=== PATIENT | male | born 1985 | race Two or more races ===

== ENCOUNTER 2024-06-08 14:20 | Emergency (ER) | payer OTHER ==
[~2024-06-08] VITALS: Ht 180.3 cm; Wt 68.0 kg
[2024-06-08 16:20] LABS: HEMATOCRIT 44.4 % (39.0-48.0); HEMOGLOBIN 15.3 g/dL (13-16.00); MEAN CELL VOLUME 90.6 fL (80.0-100.00); MEAN CORPUSCULAR HEMOGLOBIN 31.2 pg (27.00-32.0); MEAN CORPUSCULAR HGB CONC 34.5 g/dl (32.0-36.0); PLATELET COUNT 164 K/uL (150-450)
== END 2024-06-08 18:54 | disposition home or self-care (01) ==
LOC: ER 14:21
PROVIDERS: Nurse Practitioner Family
DX: A90 Dengue fever [classical dengue] (principal); R53.81 Other malaise; Z91.018 Allergy to other foods; Z20.822 Contact with and (suspected) exposure to COVID-19